=== PATIENT | female | born 1975 | race Caucasian/White ===

== ENCOUNTER → 2020-09-28 13:43 | Outpatient (CLI) | payer BC, SELFPAY ==
[2020-09-28 14:10] LABS: Basophils % 0.8 % (0.1-2.0); Eosinophils # 0.1 K/mm3 (0.0-0.4); Eosinophils % 1.9 % (0.1-12.0); Hematocrit 43.4 % (37.0-47.0); Hemoglobin 13.6 g/dL (12.2-16.2); Lymphocytes % 34.6 % (10-50); Mean Corpuscular HGB Conc 31.4 g/dL (31.8-35.4); Mean Corpuscular Hemoglobin 26.9 pg (27.0-31.2); Mean Corpuscular Volume 85.7 fl (81-99); Mean Platelet Volume 8.1 fl (7.4-10.4); Monocytes # 0.2 K/mm3 (0.1-1.0); Monocytes % 4.1 % (1.7-9.3); Neutrophils # 3.4 K/mm3 (1.8-7.8); Neutrophils % 58.6 % (37.0-80.0); Platelet Count 284 K/mm3 (142-424); Red Blood Count 5.06 M/mm3 (4.20-5.40); Red Cell Distribution Width 14.2 % (11.5-17.5); White Blood Count 5.8 K/mm3 (4.8-10.8)
[2020-09-28 14:15] LABS: Alanine Aminotransferase 15 U/L (12-78); Albumin/Globulin Ratio 1.6 (1.1-1.8); Alkaline Phosphatase 116 U/L (38-126); Anion Gap 13.7 mEq/L (5-15); Aspartate Amino Transferase 23 U/L (14-36); Bilirubin,Total 0.4 mg/dl (0.2-1.3); Blood Urea Nitrogen 25 mg/dl (7-17); Calcium 10.1 mg/dl (8.4-10.2); Carbon Dioxide 22 mmol/L (22.0-30.0); Chloride 111 mmol/L (98-107); Chol/HDL Ratio 3.3 (1-3.5); Cholesterol 255 mg/dl (140-200); Estimated Glomerular Filt Rate 61 ml/min (>60); GFR (African American) 73 ML/MIN (>60); Globulin 3.2 g/dL (1.3-3.2); Glucose 132 mg/dl (74-100); HDL Cholesterol 78 mg/dl (40-60); Potassium 3.7 mmoL/L (3.5-5.1); Sodium 143 mmol/L (136-145); Total Protein,Serum 8.2 g/dl (6.3-8.2); Triglycerides 135 mg/dl (30-150); VLDL Cholesterol 27 mg/dL (0-40)
[2020-09-28 14:28] LABS: Direct LDL Cholesterol 113.14 mg/dL (100-129)
[2020-09-28 14:31] LABS: T4 (Thyroxine) 8.9 ug/dl (5.53-11.0)
[2020-09-28 14:45] LABS: Thyroid Stimulating Hormone 1.43 uIU/mL (0.465-4.68)
== END ==
PROVIDERS: Visit Provider Emergency Medicine
DX: I10 Essential (primary) hypertension (principal); R53.83 Other fatigue; R63.5 Abnormal weight gain; E66.3 Overweight
CPT/HCPCS: 80053; 80061; 84436; 84443; 85025

== ENCOUNTER → 2021-01-04 14:27 | Outpatient (CLI) | payer SELFPAY ==
[2021-01-06 11:08] LABS: Hep A Ab, IgM Negative (Negative); Hep A Ab, Total Negative (Negative); Hep B Core Ab, Total Negative (Negative)
[2021-01-06 14:37] LABS: Hep B Surface Ab, Qual Reactive (.); Hepatitis C Antibody <0.1 s/co ratio (0.0-0.9)
== END ==
PROVIDERS: Visit Provider Emergency Medicine
DX: Z02.1 Encounter for pre-employment examination (principal); R53.83 Other fatigue
CPT/HCPCS: 86704; 86706; 86708; 87380; 87522